=== PATIENT | male | born 1985 | race Caucasian/White ===

== ENCOUNTER 2018-01-20 06:15 | Day surgery (SDC) | payer BC ==
[~2018-01-20] VITALS: Ht 177.8 cm; Wt 111.1 kg
[~2018-01-20 06:15] MED LIST: FLONASE ALLERG9.9 ML NAS; FLOVENT DISKUS50 MCG INH; PROAIR HFA8.5 GM INH
--- NOTE | 2018-01-20 09:06 | NUR ---
01/20/18 0906 Guillermina Baker 0901 PT ARRIVED IN PACU SLEEPY WITH NO C/O'S.
--- NOTE | 2018-01-20 09:35 | NUR ---
PATIENT ARRIVED FROM PACU. O2 SATS 93-94%. PATIENT RATES 4/10 PAIN TO PENIS. PATIENT DENIES NAUSEA. VITALS ARE STABLE. PATIENT HAS INCISION COVERED WITH GUAZE AND JOCK STRAP, NO DRAINAGE IS NOTED. IN ROOM WITH PATIENT.
[2018-01-20] MEDS ORDERED: PERCOCET 5-3251 EACH PO (09:57)
[2018-01-20] MEDS ORDERED: COLACE100 MG PO (09:58)
[2018-01-20] MEDS ORDERED: KEFLEX500 MG PO (10:00)
--- NOTE | 2018-01-20 10:08 | NUR ---
PATIENT SITTING UP, HAVING SIPS OF COFFEE, DENIES BEING HUNGARY OR NEEDING PAIN MEDICATION AT THIS TIME.
--- NOTE | 2018-01-20 10:46 | NUR ---
PATIENT VOIDED 500ML OF CLEAR YELLOW URINE. PATIENT ABLE TO STAND AND AMBULATE STEADILY. PATIENT TOLERATED COFFEE AND CRACKERS WITH NO NAUSEA. PATIENT DENIES NEED FOR PAIN MEDICATIONS AT THIS TIME.
--- NOTE | 2018-01-20 11:01 | NUR ---
PATIENT AND GIVEN DISCHARGE INSTRUCTIONS, QUESTIONS ANSWERED. RIGHT HAND SALINE LOCK REMOVED INTACT, IV SITE WITHOUT REDNESS OR SWELLING. PATIENT IS GETTING DRESSED WITH HELP OF .
--- NOTE | 2018-01-21 19:01 | OR ---
[facility] [address], [place] [address] Signed DATE OF OPERATION: 01/20/2018 SURGEON: Duran Taylor MD PREOPERATIVE DIAGNOSIS: Phimosis. POSTOPERATIVE DIAGNOSIS: Phimosis. PROCEDURE: Elective circumcision. ANESTHESIA: General. ESTIMATED BLOOD LOSS: Minimal. COMPLICATIONS: None. SPECIMENS: Foreskin sent to pathology for evaluation. DRAINS: None. INDICATIONS: Mr. Rosado is a very pleasant 32-year-old gentleman who recently presented to my clinic with complaints of an inability to retract his foreskin. He reported that since around age 12, he has been unable to see the head of his penis. Physical examination revealed some minor involvement of lichen sclerosis at the distal edge of the foreskin. Physical exam did confirm the presence of phimosis. After discussion of the risks and benefits of the procedure, the patient has elected to undergo elective circumcision for definitive management of his condition. OPERATIVE FINDINGS: 1. On gross inspection of the external genitalia, the patient does have phimosis with involvement of lichen sclerosis at the distal edge of the foreskin. There does not Electronically Signed By: DURAN TAYLOR MD 01/21/18 1901 PATIENT NAME: TOSHIA ROSADO OPERATIVE REPORT DATE OF : 81 REPORT #: [id number] PHYSICIAN: DURAN TAYLOR MD PCP: ISSA ARGUELLES PAC REPORT IS CONFIDENTIAL AND NOT TO BE RELEASED WITHOUT AUTHORIZATION [facility] [address], [place] [address] Signed appear to be any glans at moment with lichen sclerosis. His meatus is normal in appearance and location. The testicles are descended bilaterally and/or without palpable masses. 2. A dorsal slit was initially performed for exposure of the glans penis. Of note, there was no significant debris or smegma seen around the glans once the foreskin was retracted. 3. The patient's prepuce was successfully removed via the standard sleeve circumcision technique without complication. DESCRIPTION OF PROCEDURE: After informed consent was obtained, the patient was taken back to the operating room. He was transferred from the [facility] to the operating room table where general anesthesia was induced. He was placed in the supine position and his genitalia prepped and draped in a standard sterile fashion. The physical examination of the genitalia was performed initially. A straight clamp was then placed on the dorsal aspect of the prepuce for approximately 2 minutes. It was then released and the foreskin was then incised in this area using Metzenbaum scissors. I was able to retract the foreskin and evaluate the glans penis. Please see the findings. We re-prepped the glans penis and then continued on with the circumcision. I used a marker to delineate my circumferential incision of the foreskin. On the inner aspect of the prepuce, I made a circumferential incision approximately 1 cm down from the coronal sulcus. I then made another incision circumferentially, removing approximately 1.5 cm of the distal aspect of his foreskin. I dissected down both incisions very gently. I then used electrocautery to excise the remainder of that portion of the foreskin. Once the foreskin was removed, it was placed in a specimen cup to be sent to pathology for evaluation. Electrocautery was then used to achieve and maintain hemostasis. Once hemostasis was achieved and maintained via electrocautery, the remaining edges of the penile shaft skin were then reapproximated in a simple interrupted fashion using 4-0 chromic. I began with anchor sutures at both the 12 o'clock, 6 o'clock, 3 o'clock, and 9 o'clock positions. I placed an U-stitch at the 6 o'clock position. The remaining skin edges again were closed in a simple interrupted fashion using 4-0 chromic. The area was cleaned and dried and then bacitracin was applied along the circumferential incision. This was followed by Xeroform and scrotal fluffs and a scrotal support. The procedure was then terminated. The patient tolerated the procedure well without any complication. He will now be transferred to the postanesthesia care unit in stable condition. DISPOSITION: I discussed the details of today's procedure with the patient's and his dad and answered all their questions. He will be sent home today in stable condition in their company. He was given Percocet 5/325 dispense #30 as needed for pain along with Colace 100 mg p.o. b.i.d. dispense #40 p.r.n. constipation. He was also given Keflex 500 mg p.o. t.i.d. for a total of one week. He will be scheduled to return to clinic on or Electronically Signed By: DURAN TAYLOR MD 01/21/18 8081 PATIENT NAME: TOSHIA ROSADO OPERATIVE REPORT DATE OF : 81 REPORT #: [id number] PHYSICIAN: DURAN TAYLOR MD PCP: ISSA ARGUELLES PAC REPORT IS CONFIDENTIAL AND NOT TO BE RELEASED WITHOUT AUTHORIZATION [address] [address] Signed around February 12 for his first postoperative evaluation. In the interim, he is not to return to work for at least one week and is to limit his physical activity to very light tasks. Duran Taylor MD AR/MODL /[id number] Copies: ~ Electronically Signed By: DURAN TAYLOR MD 01/21/18 1901 PATIENT NAME: TOSHIA ROSADO OPERATIVE REPORT DATE OF : 81 REPORT #: [id number] PHYSICIAN: DURAN TAYLOR MD PCP: ISSA ARGUELLES PAC REPORT IS CONFIDENTIAL AND NOT TO BE RELEASED WITHOUT AUTHORIZATION
== END 2018-01-20 11:05 | disposition home or self-care (01) ==
LOC: DS 06:15
PROVIDERS: Urology
PROC: 0VTTXZZ Resection of Prepuce, External Approach (ICD-10-PCS; principal; 2018-01-20 08:15)
DX: N47.1 Phimosis (principal); N48.1 Balanitis; J45.909 Unspecified asthma, uncomplicated; F17.210 Nicotine dependence, cigarettes, uncomplicated; Z79.899 Other long term (current) drug therapy; Z79.52 Long term (current) use of systemic steroids
CPT/HCPCS: 00920; J0696; J2405; J2704; J2765; J3010; J7120